=== PATIENT | male | born 1995 | race Caucasian/White ===

== ENCOUNTER → 2020-10-18 | Outpatient (CLI) | payer BC ==
[2020-10-18 14:42] LABS: HEMOGLOBIN 16.2 gm/dl (14.0-17.5); RED BLOOD COUNT 5.37 M/UL (4.20-5.50); WHITE BLOOD COUNT 4.3 K/UL (4.5-11.0)
[2020-10-18 14:54] LABS: BUN/CREATININE RATIO 14 (0-10)
== END ==
LOC: LAB 13:40
PROVIDERS: Family Medicine
DX: R35.0 Frequency of micturition (principal); F41.9 Anxiety disorder, unspecified; F32.9 Major depressive disorder, single episode, unspecified
CPT/HCPCS: 36415; 80053; 81001; 84443; 85027; 87086